=== PATIENT | male | born 1970 ===

== ENCOUNTER 2017-09-27 07:30 | Emergency (ER) | payer OTHER ==
[~2017-09-27] VITALS: Ht 172.7 cm; Wt 108.9 kg
[2017-09-27] MEDS ORDERED: DIOVAN HCT 1601 EACH (07:42)
[2017-09-27] MEDS ORDERED: TUSSI PRES-B L120 M1 PO (10:39)
[2017-09-27] MEDS ORDERED: MEDROLPACK PO (10:39)
== END 2017-09-27 11:01 | disposition home or self-care (01) ==
LOC: ER 07:30
DX: B34.9 Viral infection, unspecified (principal)